=== PATIENT | female | born 1975 | race Caucasian/White ===

== ENCOUNTER 2021-07-27 01:53 | Emergency (ER) | payer MEDICARE, MEDICAID ==
[~2021-07-27] VITALS: Ht 165.1 cm; Wt 100.1 kg
[2021-07-27] MEDS ORDERED: ketorolac trometh inj. 60 MG/2 ML VIAL IM ONE (02:40)
--- NOTE | 2021-07-27 03:14 | NUR ---
RN reviewed discharge instructions with patient. Patient verbalizes understanding.
[2021-07-27 03:32] VITALS: BP 140/95
== END 2021-07-27 03:34 | disposition home or self-care (01) ==
LOC: ER 01:54
DX: H92.03 Otalgia, bilateral (principal); I10 Essential (primary) hypertension
CPT/HCPCS: 96372; 99283; J1885